=== PATIENT | female | born 1960 | race Caucasian/White ===

== ENCOUNTER → 2017-02-23 | Outpatient (CLI) | payer OTHER | LOC: RAD 13:03 | DX: Z12.31 Encounter for screening mammogram for malignant neoplasm of breast (principal) ==

== ENCOUNTER → 2017-03-10 | Outpatient (CLI) | payer OTHER | LOC: ULTRA 09:27 | DX: N60.02 Solitary cyst of left breast (principal) ==

== ENCOUNTER → 2018-04-18 | Outpatient (CLI) | payer OTHER | LOC: RAD 03:58 | DX: Z12.31 Encounter for screening mammogram for malignant neoplasm of breast (principal) ==